=== PATIENT | female | born 1995 | race Caucasian/White ===

== ENCOUNTER 2023-11-20 07:25 | Inpatient (IN) ==
[2023-11-20] MEDS ORDERED: LIDOCAINE 1% LOCAL 20 ML VIAL INFIL PRN (07:49)
[2023-11-20 08:20] LABS: Hematocrit (blood only) 40.5 % (37.0-47.0); Hemoglobin 13.5 g/dl (12.0-16.0); Mean Corpuscular Hemoglobin 29.3 pg (25.0-34.0); Mean Corpuscular Hgb Conc 33.3 g/dL (32.0-36.0); Mean Platelet Volume 11.1 fL (9.4-12.4); Platelet Count 173 K/uL (130-400); RDW Coefficient of Variation 14.4 % (11.5-14.5); RDW Standard Deviation 46.5 fL (36.4-46.3); White Blood Count 13.16 K/ul (4.8-10.8)
[2023-11-20] MEDS: LACTATED RINGER'S 1,000 ML IV PRN (09:23)
[2023-11-20] MEDS: OXYTOCIN 30 UNITS/NSS 30 UNITS/500 ML BAG IV PRN ×2 (09:23→17:55)
--- NOTE | 2023-11-20 09:45 | History & Physical Report ---
Date of Service November 20, 2023 Assessment & Plan (1) Velamentous insertion of umbilical cord: Plan: Intrauterine in a prima female at 39 weeks presents for induction of labor because of velamentous cord insertion. Cervix is favorable therefore Pitocin induction will be done per protocol. Epidural when requested. Anticipate vaginal . Admission and Anticipated Discharge Date Admission Date: November 20, 2023 History of Present Illness Primary Care Provider: Jaida Nunez DO Patient is a 28-year-old 1 P0 female who presents at 39 weeks for induction of labor because of velamentous insertion of umbilical cord. The placenta is also bilobed with the umbilical cord inserting into the larger lobe with vessels traversing between the larger lobe and the smaller lobe. testing was all reassuring she did have hydramnios until 36 weeks. MFM recommen ded delivery at 39 weeks because of the velamentous insertion of the cord. The right kidney appears to be either pelvic in position or closer to the midline. GBS is negative Allergies Allergy/AdvReac Type Severity Reaction Status Date / Time No Known Drug Allergies Allergy Verified 11/17/23 08:34 Home Medications Medication Instructions Recorded Confirmed Type docosahexaenoic acid [ DHA] 1 tab PO DAILY 08/25/22 11/20/23 History docusate sodium [Colace] 1 tab PO DAILY 09/06/23 11/20/23 History Patient History Medical History (Updated 11/20/23 @ 09:43 by Bianca Mohr MD, FACOG) Eczema Varicella vaccination ASCUS with positive high risk HPV at [facility] [place], per patient, 2021? 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 Grandfather (Maternal) Colorectal cancer Father No problems noted. Mother No problems noted. Denies family history of Ovarian cancer Prostate cancer Heart disease Myocardial infarction Hypertension Social History (Updated 04/07/23 @ 14:09 by Katherine Edwards) Smoking Status: Never smoker Second Hand Exposure: No; Do You Dip or Chew Tobacco: No; Hx Alcohol Use: No Hx Substance Use: No Preferred Language: Omani Communication Ability: Effective Visual Impairment: Partially Limited Hearing Ability: Normal Superintendent Recreation Required: No Beliefs That Will Affect Care: None marital status: marital status details: Black Ibarra (26) [phone] Current Living Situation: Spouse Current Living Situation Comment: lives with spouse, dogs current occupational status: employed current occupation: RN, [employer] How many Children do You have: 0 Other Information That Helps Us Care for You: No Feels Safe at Home: Yes Safety Concerns: Feels Safe At This Time Childhood Exposure to Second-Hand Smoke: No Diet: regular caffeine: Yes during the past year weight has: remained stable Dental Care, Regularly: Yes Physical Activity Frequency: 3-4 Times per Week Seatbelt Use: always Sunscreen Use: Yes Assistive Devices: Glasses Review of Systems All systems reviewed & are unremarkable except as noted in HPI & below Physical Exam Constitutional: WD/WN, vitals as above Psychiatric: A+Ox3, euthymic affect Genitourinary: OB Exam Abdomen: + vertex, + estimated weight (6-7 philip nds) and + irregular contractions Manual OB Exam: + cervical dilation (2- 3cm), + cervical effacement (95%) and + station 0 (midposition) OB Exam Monitor Tracing: + external FHT monitor used, + external uterine monitor used, + category I and + normal FHT variability Results & Data Vital Signs (Past 12 Hours) Vital Signs Temp Pulse Resp BP 11/20/23 09:28 75 11/20/23 09:28 146/89 H 11/20/23 07:37 99.0 F 18 11/20/23 07:35 77 127/85 Coding Level of Care Code None Diagnoses Velamentous insertion of umbilical cord in third trimester O43.123 Trimester: third trimester (1) Velamentous insertion of umbilical cord Trimester: third trimester Qualified Code(s): O43.123 - Velamentous insertion of umbilical cord, third trimester
[2023-11-20] MEDS ORDERED: ePHEDrine sulfate 50 MG/ML AMP ONE (10:31)
[2023-11-20] MEDS: fentANYL 2 MCG/ML BUPIVacaine 0.125%-NSS 100ML BAG ONE (11:31)
[2023-11-20] MEDS: LIDOCAINE 2%/EPINEPHRINE 1:200,000 20 ML PF ONE (11:32)
--- NOTE | 2023-11-20 12:13 | Anesthesiology Consultation ---
Date of Service November 20, 2023 Assessment & Plan Chart Review Chart Review: Acceptable Risk for Labor Epidural Consults Requested none History Height/Weight Height: 5 ft 4 in Weight: 72.121 kg Allergies Allergy/AdvReac Type Severity Reaction Status Date / Time No Known Drug Allergies Allergy Verified 11/17/23 08:34 Medications Home Medications Medication Instructions Recorded Confirmed Last Taken docosahexaenoic acid [ DHA] 1 tab PO DAILY 08/25/22 11/20/23 11/19/23 20:00 docusate sodium [Colace] 1 tab PO DAILY 09/06/23 11/20/23 11/19/23 20:00 Active Medications Generic Name Dose Route Start Last Admin Trade Name Freq PRN Reason Stop Dose Admin Lactated Ringer's 1,000 mls @ 125 mls/hr 11/20/23 07:49 11/20/23 11:00 Lr IV 11/22/23 07:48 125 mls/hr .Q8H PRN Infusion L&D Protocol Protocol Oxytocin 30 units in 500 mls @ 7 mls/hr 11/20/23 07:50 11/20/23 11:00 Pitocin 30 Units/Nss IV 11/22/23 07:49 0.42 units/hr .Q24H PRN 7 mls/hr Labor Induction/Augmentation Titration Protocol 0.42 UNITS/HR Past Medical History Medical History Eczema [place] [facility] [place] 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 Grandfather (Maternal) Colorectal cancer Father No problems noted. Mother No problems noted. Denies family history of Ovarian cancer Prostate cancer Heart disease Myocardial infarction Hypertension Past Surgical History Surgical History Status post colposcopy (10/04/21) S/P eye surgery (05/2021) L eye, retinal detachment laser repair S/P wisdom tooth extraction (2009) Social History Smoking Status: Never smoker Do You Dip or Chew Tobacco: No Hx Alcohol Use: No Hx Substance Use: No Physical Exam Vital Signs Last Vital Signs Temp 36.7 C 11/20/23 11:30 Pulse 79 11/20/23 12:07 Resp 20 11/20/23 12:00 BP 128/69 11/20/23 12:03 Pulse Ox 99 11/20/23 12:07 Testing Laboratory Results 11/20/23 08:03
[2023-11-20] MEDS ORDERED: fentaNYL citrate PF 100 MCG/2 ML VIAL EPI PRN (12:14)
[2023-11-20] MEDS ORDERED: BUPIVACAINE 0.25% PF 30 ML VIAL EPI PRN (12:14)
[2023-11-20] MEDS ORDERED: ePHEDrine sulfate 50 MG/ML AMP IV PRN (12:14)
[2023-11-20] MEDS ORDERED: fentaNYL citrate PF 100 MCG/2 ML VIAL EPI STA (12:14)
[2023-11-20] MEDS ORDERED: LIDOCAINE 2%/EPINEPHRINE 1:200,000 20 ML PF EPI STA (12:14)
[2023-11-20] MEDS ORDERED: diphenhydrAMINE 50 MG/ML VIAL IV PRN (12:14)
[2023-11-20] MEDS ORDERED: LIDOCAINE 2% MPF LOCAL 5 ML VIAL EPI PRN (12:14)
[2023-11-20] MEDS ORDERED: SODIUM CHLORIDE 0.9% PF INJ 10 ML VIAL EPI PRN (12:14)
[2023-11-20] MEDS ORDERED: ROPIVACAINE 0.5% PF 5 MG/ML 20 ML VIAL EPI PRN (12:14)
[2023-11-20] MEDS ORDERED: BUPIVACAINE 0.25% PF 30 ML VIAL EPI STA (12:14)
[2023-11-20] MEDS ORDERED: NALOXONE HCL 1 MG in SODIUM CHLORIDE 0.9% 1,000 ML IV PRN (12:14)
[2023-11-20] MEDS ORDERED: NALBUPHINE HCL 5 MG in SYRINGE 0 ML IV PRN (12:14)
[2023-11-20] MEDS ORDERED: fentANYL 2 MCG/ML BUPIVacaine 0.125%-NSS 100ML BAG EPI PRN (12:14)
[2023-11-20] MEDS ORDERED: SODIUM CHLORIDE 0.9% PF INJ 10 ML VIAL EPI STA (12:14)
[2023-11-20] MEDS ORDERED: NALOXONE HCL 0.4 MG/1 ML VIAL/CARP IV PRN (12:14)
[2023-11-20] MEDS: SODIUM CHLORIDE 0.9% PF INJ 10 ML VIAL ONE (12:25)
[2023-11-20] MEDS: fentaNYL citrate PF 100 MCG/2 ML VIAL ONE (12:25)
[2023-11-20] MEDS: BUPIVACAINE 0.25% PF 30 ML VIAL ONE (12:25)
--- NOTE | 2023-11-20 17:37 | Delivery Summary ---
Vaginal Delivery Summary Date of Service November 20, 2023 Vaginal Delivery Summary [facility] Clinical note the patient was induced at 39+ weeks for abnormal placentation and suspected 1 kidney was given oxytocin and then received epidural artificial rupture of membranes she progressed to fully dilated heart rate that went into a prolonged bradycardia she started pushing and making good progress however the heart rate remained low at this stage I recommended vacuum we used a Kiwi vacuum drain the bladder first for 200 cc of urine vacuum was applied to the baby's head and after 2 contractions and 1 total pop-off the baby's head was delivered vacuum was detached should be noted the baby was in occiput anterior position and +2 station application of the vacuum. Baby was easily delivered by gentle traction no excessive force easy delivery baby male vigorous at delivery. Pediatric nursing team in attendance. I made a small midline episiotomy this was repaired with 3-0 Vicryl and sure that the placenta was all removed including a manual survey it did seem to have a bilobed appearance this will be sent to pathology once the placenta was delivered IV Pitocin was started sponge and instrument counts were correct [facility] Vaginal Delivery Charge [facility]
[2023-11-20 17:49] LABS: Base Excess Cord Venous Blood -1.9 mEq/L (-7.7-1.9); Cord Venous Blood HCO3 25 mmol/L (18.4-26.8); Cord Venous Blood PCO2 50 mmHg (30.4-57.2); Cord Venous Blood PO2 26 mmHg (14.1-43.3); Cord Venous Blood pH 7.31 (7.20-7.44); O2 Saturation Cord Venous Bld < 60.0 % (<68); Oxygen Sat Cord Arterial Blood < 60.0 % (<60)
[2023-11-20] MEDS ORDERED: HYDROCORTISONE ACETATE 25 MG SUPP PR PRN (17:57)
[2023-11-20] MEDS ORDERED: DIPHTHER/TETAN/PERTUS Vaccine (Tdap, Adol/Adult) 0.5mL IM ONE (17:57)
[2023-11-20] MEDS ORDERED: bisacodyL 10 MG SUPP PR PRN (17:57)
[2023-11-20] MEDS ORDERED: OXYTOCIN 30 UNITS/NSS 30 UNITS/500 ML BAG IV PRN (17:57)
[2023-11-20] MEDS ORDERED: ACETAMINOPHEN 325 MG TAB PO PRN (17:57)
--- NOTE | 2023-11-20 18:27 | Anesthesia Procedure Note ---
Date of Service November 20, 2023 Anesthesia Post Epidural Note Vital Signs Vital Signs: Temp Pulse Resp BP Pulse Ox O2 Del Method 37.1 C 84 18 119/63 79 L Room Air 11/20/23 17:40 11/20/23 18:23 11/20/23 18:10 11/20/23 18:23 11/20/23 17:21 11/20/23 15:15 Pain Intensity Lower Abdomen: Pain Intensity: 0 Notes Mental Status: alert / awake / arousable Nausea / Vomiting: adequately controlled Pain: adequately controlled Airway Patency, RR, SpO2: stable & adequate BP & HR: stable & adequate Hydration State: stable & adequate Neuraxial Anesthesia: was administered and sensory block is resolving Anesthetic Complications: no major complications apparent and Pt Satisfied with anesthetic care Epidural: Removed without complications and With tip intact
[2023-11-20] MEDS: BENZOCAINE 20% SPRY 85 APPLN/85 GM CAN EXT PRN (21:31)
[2023-11-20] MEDS: DOCUSATE SODIUM 100 MG CAP PO SCH (21:32)
[2023-11-20] MEDS: IBUPROFEN 600 MG TAB PO PRN (21:32)
--- NOTE | 2023-11-21 06:08 | Obstetrical Progress Note ---
Date of Service November 21, 2023 Assessment & Plan (1) Encounter for care after hospital delivery: Plan: 28 yo post- day 1 s/p Continue post care Feels well today. Encourage ambulation and Hgb stable, rubella immune Pain well controlled with ibuprofen Admission and Anticipated Discharge Date Admission Date: November 20, 2023 Supervising Physician Co-Signing Physician Notes Resident Physician Supervision Note: I interviewed and examined the patient. Discussed with [Name of resident] and agree with findings and plan as documented in the note. Any exceptions or clarifications are listed here: [None] Documented By: Fady Farias MD, FACOG Subjective 28 yo G1-0 post- day 1 s/p (VAVD) Ambulation: ambulating normally Voiding: no voiding problems Passing Gas:: Yes Diet Tolerance:: regular diet Lochia:: Small Feeding Type::breast feeding Current Pain Level: controlled Resting comfortably this AM in NAD. Denies ALTMNA, CP, SOB, N/V/D, LE pain/swelling. Review of Systems Review of Systems: All systems reviewed & are unremarkable except as noted in HPI & below Physical Exam Physical Exam: General: patient resting comfortably, NAD, non-toxic in appearance, AA&O x 4, answers questions appropriately. Skin: warm, dry, intact HEENT: NC/AT, anicteric sclera, conjunctiva without injection, moist mucus membranes. Heart: +S1/S2, regular, no m/r/g Lungs: equal air entry bilaterally, no rales/rhonchi/wheezes Abd: +BS, soft, NT/ND, uterine fundus firm at umbilicus Ext: warm, no clubbing/cyanosis or edema, Herb's neg. Neuro: nonfocal, patient AA&O x 4, speech intact, no facial droop, moving all extremities on command. Results & Data Vital Signs (Past 12 Hours) Vital Signs Temp Pulse Pulse Resp BP BP Pulse Ox 11/21/23 03:50 36.5 C 85 18 117/75 98 11/20/23 23:22 37.1 C 93 H 18 115/66 99 11/20/23 21:15 36.8 C 90 18 105/69 98 11/20/23 19:40 36.5 C 16 11/20/23 19:38 90 11/20/23 19:38 112/65 11/20/23 19:23 90 11/20/23 19:23 115/67 11/20/23 19:10 16 11/20/23 19:08 96 H 11/20/23 19:08 116/58 L 11/20/23 18:53 96 H 11/20/23 18:53 125/71 11/20/23 18:40 37.0 C 88 20 114/60 11/20/23 18:38 88 11/20/23 18:38 114/60 11/20/23 18:25 84 16 119/63 11/20/23 18:23 84 11/20/23 18:23 119/63 11/20/23 18:10 89 18 110/59 L 11/20/23 18:08 89 11/20/23 18:08 110/59 L O2 Del Method 11/21/23 03:50 Room Air 11/20/23 23:22 Room Air 11/20/23 21:15 Room Air 11/20/23 19:40 11/20/23 19:38 11/20/23 19:38 11/20/23 19:23 11/20/23 19:23 11/20/23 19:10 11/20/23 19:08 11/20/23 19:08 11/20/23 18:53 11/20/23 18:53 11/20/23 18:40 11/20/23 18:38 11/20/23 18:38 11/20/23 18:25 11/20/23 18:23 11/20/23 18:23 11/20/23 18:10 11/20/23 18:08 11/20/23 18:08 Resident Activity Tracking Resident Involvement: Resident Care Provided Care Provided: OB Delivery
[2023-11-21 06:39] LABS: Hematocrit (blood only) 32.7 % (37.0-47.0); Hemoglobin 10.6 g/dl (12.0-16.0); Mean Corpuscular Hgb Conc 32.4 g/dL (32.0-36.0); Mean Corpuscular Volume 89.6 fL (80.0-100.0); Mean Platelet Volume 11.2 fL (9.4-12.4); Platelet Count 152 K/uL (130-400); RDW Coefficient of Variation 14.6 % (11.5-14.5); RDW Standard Deviation 47.8 fL (36.4-46.3); Red Blood Count 3.65 M/uL (4.20-5.40)
[2023-11-21] MEDS: PRENATAL VITAMIN 1 TAB PO SCH (08:47)
[2023-11-21] MEDS: bisacodyL 5 MG TABEC PO SCH (20:04)
--- NOTE | 2023-11-22 06:15 | Obstetrical Progress Note ---
Date of Service November 22, 2023 Assessment & Plan (1) Encounter for care after hospital delivery: Plan: 28 yo post- day 2 s/p Continue post care Feels well today. Encourage ambulation and Hgb stable, rubella immune Pain well controlled with ibuprofen Discharge home today, instructions were discussed with the patient Admission and Anticipated Discharge Date Admission Date: November 20, 2023 Supervising Physician Co-Signing Physician Notes Patient seen with resident and agree with the above findings and plan. Stable for discharge. Subjective 28 yo post- day 2 s/p (VAVD) Ambulation: ambulating normally Voiding: no voiding problems Passing Gas:: Yes Diet Tolerance:: regular diet Lochia:: Small Feeding Type::breast feeding Current Pain Level: mild Resting comfortably this AM in NAD. Denies ALTMAN, CP, SOB, N/V/D, LE pain/swelling. Review of Systems Review of Systems: as per hpi Physical Exam Physical Exam: General: patient resting comfortably, NAD, non-toxic in appearance, AA&O x 4, answers questions appropriately. Skin: warm, dry, intact HEENT: NC/AT, anicteric sclera, conjunctiva without injection, moist mucus membranes. Heart: +S1/S2, regular, no m/r/g Lungs: equal air entry bilaterally, no rales/rhonchi/wheezes Abd: +BS, soft, NT/ND, uterine fundus firm at umbilicus Ext: warm, no clubbing/cyanosis or edema Neuro: nonfocal, patient AA&O x 4, speech intact, no facial droop, moving all extremities on command. Results & Data Vital Signs (Past 12 Hours) Vital Signs Temp Pulse Resp BP Pulse Ox O2 Del Method 11/22/23 00:40 36.6 C 83 18 103/68 98 Room Air 11/21/23 19:45 37.1 C 90 18 109/70 100 Room Air Resident Activity Tracking Resident Involvement: Resident Care Provided Care Provided: OB Delivery
[2023-11-22 07:32] LABS: Hemoglobin 11.2 g/dl (12.0-16.0)
== END 2023-11-22 11:31 | disposition home or self-care (01) | DRG 807 ==
LOC: 4S1 07:25 → 4E2 20:01